=== PATIENT | female | born 1970 | race Two or more races ===

== ENCOUNTER 2024-06-23 09:08 | Emergency (ER) | payer MEDICAID, OTHER ==
[~2024-06-23] VITALS: Ht 167.6 cm; Wt 53.7 kg
[2024-06-23 10:37] VITALS: BP 142/93; PULSE 107; RESP 18; TEMP 98.2; O2SAT 99
== END 2024-06-23 11:48 | disposition home or self-care (01) ==
LOC: ER 09:12
DX: M24.812 Other specific joint derangements of left shoulder, not elsewhere classified (principal)
CPT/HCPCS: 73030